=== PATIENT | female | born 1995 | race Caucasian/White ===

== ENCOUNTER → 2016-10-19 | Outpatient (CLI) | payer OTHER | END | disposition home or self-care (01) | LOC: LABWHC1 14:26 | PROVIDERS: ATTEND Obstetrics & Gynecology | DX: Z34.92 Encounter for supervision of normal pregnancy, unspecified, second trimester (principal); Z3A.00 Weeks of gestation of pregnancy not specified | CPT/HCPCS: 36415; 82105; 82677; 84702; 86336 ==

== ENCOUNTER → 2016-11-20 | Outpatient (CLI) | payer OTHER ==
--- NOTE | 2016-11-20 15:33 | US ---
EXAMINATION TYPE: US OB anatomy transabd DATE OF EXAM: 11/20/2016 2:53 PM COMPARISON: NONE HISTORY: 21-year-old female LGA, TECHNIQUE: Transabdominal (TA) FINDINGS: EXAM MEASUREMENTS: GESTATIONAL AGE / DATING Physician Established: (21 weeks/3 days) EDC: 03/30/2017 Dates by LMP: (21 weeks/3 days) EDC: 03/30/2017 Dates by First Scan: today Dates by Current Scan for: (20 weeks/5 days +/- 1W0D) EDC: 04/04/2017 SURVEY IUP: Single PLACENTA: Anterior PREVIA: No previa. The caudal placental margin is 3.2 cm from the internal cervical os. KAIDEN: 15.8 cm Normal CERVICAL LENGTH (transabdominal: norm > 3.0cm): 4.0 cm BIOMETRY PRESENTATION: Variable/ Cephalic at exam start LIE: Oblique BPD: 5.0 cm 21 weeks / 0 days HC: 18.5 cm 20 weeks / 6 days AC: 16.1 cm 21 weeks / 1 day FL: 3.5 cm 21 weeks / 0 days ESTIMATED WEIGHT IN GRAMS: 397.3 grams ESTIMATED WEIGHT IN LBS/OZS: 0 lbs. 14 oz. WEIGHT PERCENTAGE BASED ON ESTABLISHED DATE: 26.7 % HC/AC: 1.15 normal FL/AC: 21.6 normal HEART RATE: 155 bpm RHYTHM: Normal ANATOMY SEEN (within normal limits): Lateral Vent (< 1 cm) 0.5 cm Cisterna Magna (< 1.1 cm) 0.4 cm Nuchal Fold (< 0.6 cm) 0.3 cm Cerebellum (varies with age) 2.1 cm Choroid Plexus (bilateral) Midline Falx Cavus Septi Pellucidi Four Chamber Heart Stomach Situs Diaphragm Bladder Three Vessel Cord Longitudinal Spine Transverse Spine Legs (bilateral) ANATOMY SUBOPTIMALLY VISUALIZED: Nose / Lips Outflow tracts: LVOT/RVOT Kidneys (bilateral) Cord Insert Arms (bilateral) - not seen along their entire length TECHNOLOGIST IMPRESSION: Single, live, IUP,20 weeks/5 days, EDC: 04/04/2017, HR 155bpm IMPRESSION: 1. Single live intrauterine with estimated gestational age of 21 weeks 3 days by LMP. Curre nt ultrasound biometry is concordant but smaller at 20 weeks 5 days, placing the child at the 27th pe rcentile for weight. 2. A few of the structures on the survey were suboptimally visualized (nose/lips, outflow tract s, kidneys, cord insertion, and bilateral arms). If desired, the patient can be brought back for a re scan of missed anatomy in 1 to 2 weeks. The remaining visualized structures appear normal. 3. Anterior placenta, slightly low lying, located 3 cm from the internal cervical os.
== END | disposition home or self-care (01) ==
LOC: RADUSWWP 14:00
PROVIDERS: ATTEND Obstetrics & Gynecology
DX: O44.42 Low lying placenta NOS or without hemorrhage, second trimester (principal); Z3A.21 21 weeks gestation of pregnancy
CPT/HCPCS: 76811

== ENCOUNTER → 2016-12-05 | Outpatient (CLI) | payer OTHER ==
--- NOTE | 2016-12-05 15:51 | US ---
EXAMINATION TYPE: US OB follow up DATE OF EXAM: 12/05/2016 3:26 PM COMPARISON: Prior ultrasound November 20, 2016 CLINICAL HISTORY: Z36 FOLLOW UP PREV ABN US or re evaluation. Assess renals, CI, N/L, outflow tracts, and arms EXAM PERFORMED: OBTA GESTATIONAL AGE / DATING Physician Established: (23 weeks/7 days) EDC: 03/30/2017 No growth performed on today?s study per ordering physician SURVEY Items seen today: Cord Insert Kidneys Outflow tracts Nose/Lips Bilateral arms PRESENTATION: Vertex LIE: Longitudinal HEART RATE: 142 bpm RHYTHM: Normal On today's study previously visualized areas that were not sufficiently imaged appeared within normal limits during real-time scanning and images saved. IMPRESSION: As above
== END | disposition home or self-care (01) ==
LOC: RADUSWWP 14:01
PROVIDERS: ATTEND Obstetrics & Gynecology
DX: Z36 Encounter for antenatal screening of mother (principal); Z3A.23 23 weeks gestation of pregnancy
CPT/HCPCS: 76816

== ENCOUNTER → 2016-12-21 | Outpatient (CLI) | payer OTHER ==
[2016-12-21 12:23] LABS: CH 30.2; CHCM 34.3; HCT 37.8 % (34.0-46.0); HDW 2.97; HGB 12.9 gm/dL (11.4-16.0); MCH 30.3 pg (25.0-35.0); MCHC 34.1 g/dL (31.0-37.0); MCV 88.7 fL (80.0-100.0); Mean Platelet Volume 7.6; RBC 4.26 m/uL (3.80-5.40); RDW 13.7 % (11.5-15.5); WBC 9.9 k/uL (3.8-10.6)
== END | disposition home or self-care (01) ==
LOC: LABWHC1 11:02
PROVIDERS: ATTEND Obstetrics & Gynecology
DX: Z34.92 Encounter for supervision of normal pregnancy, unspecified, second trimester (principal); Z3A.00 Weeks of gestation of pregnancy not specified
CPT/HCPCS: 36415; 82950; 85027

== ENCOUNTER 2017-03-29 06:15 | Inpatient (IN) | payer OTHER ==
--- NOTE | 2017-03-28 21:47 | P.HPOB ---
History of Present Illness H&P Date: 03/28/17 Chief Complaint: Scheduled repeat section This is a 21-year-old female 2 para 1 with an estimated date of confinement of 03/30/2017, estimated gestational age of 39-4/7 weeks, who presents to labor and delivery for repeat section. She has been feeling irregular contractions. She admits to good movement. course has been essentially uncomplicated. labs: Chlamydia-positive, test of cure-negative Gonorrhea-negative HIV-nonreactive Random glucose-91 Hepatitis B surface antigen-negative Hemoglobin-14.3 Syphilis antibody-negative nonreactive Rubella-immune Blood type-O+ Antibody screen-negative Quad screen-negative Obstetrical ultrasound-normal anatomy One hour Glucola-110 Group B streptococcus-positive Obstetrical history: . History of 1 section at term due to failure to progress. She did have gestational diabetes diet controlled during that . And delivered a 6 lbs. 3 oz. infant. Gynecologic history: History of chlamydia treated during this and her first . Social history: She is single and currently unemployed. Review of Systems Constitutional: Denies chills, Denies fever Eyes: denies blurred vision, denies pain Ears, nose, mouth and throat: Denies headache, Denies sore throat Cardiovascular: Denies chest pain, Denies shortness of breath Respiratory: Denies cough Gastrointestinal: Reports abdominal pain (Irregular contractions) Musculoskeletal: Denies myalgias Integumentary: Denies pruritus, Denies rash Neurological: Denies numbness, Denies weakness Past Medical History Past Medical History: No Reported History Past Surgical History: Appendectomy, Section Past Psychological History: Depression Smoking Status: Never smoker Past Alcohol Use History: None Reported Past Drug Use History: None Reported - Past Family History Father Family Medical History: Hypertension Medications and Allergies Home Medications Medication Instructions Recorded Confirmed Type Pnv,Calcium 72/Iron/Folic Acid 1 tab PO DAILY 03/28/17 03/28/17 History [ Plus Tablet] Allergies Allergy/AdvReac Type Severity Reaction Status Date / Time No Known Allergies Allergy Verified 03/28/17 21:45 Exam Osteopathic Statement: *. No significant issues noted on an osteopathic structural exam other than those noted in the History and Physical/Consult. HEENT: Within normal limits Heart: Regular rate and rhythm Lungs: Clear to auscultation bilaterally Abdomen: Cervix: 1 cm/60%/-2 station heart tones: 140s by Doppler Extremities: Negative Homans Assessment and Plan (1) 39 weeks gestation of Status: Acute (2) Previous delivery affecting Status: Acute Plan: Proceed with repeat low transverse section. I have discussed the risks, benefits, and alternative therapies for the above- mentioned procedure and for both sedation/anesthesia as well as necessary blood products administration, if indicated, as they pertain to this patient. The patient has indicated her understanding and acceptance of the risks and procedures discussed.
[2017-03-29] MEDS ORDERED: LACTATED RINGERS 1,000 ML IV ONE (06:25)
[2017-03-29] MEDS ORDERED: CITRIC ACID-SODIUM CITRATE 15 ML CUP PO ONE (06:25)
[2017-03-29] MEDS ORDERED: LIDOCAINE 1% 20 ML VIAL (10MG/ML) FOR IV START INTRADERMA PRN (06:25)
[2017-03-29] MEDS ORDERED: ceFAZolin 2 GM in SODIUM CHLORIDE 0.9% 100 ML IVPB ONE (06:25)
[2017-03-29 06:46] VITALS: BMI 32.5
[2017-03-29 06:57] LABS: Basophils % (A) 0 %; CH 29.6; CHCM 35.5; Eosinophils # (A) 0.1 k/uL (0-0.7); Eosinophils % (A) 1 %; HCT 35.1 % (34.0-46.0); HDW 3.09; HGB 12.3 gm/dL (11.4-16.0); Luc # (Auto) 0.23; Luc % (Auto) 3; Lymphocytes # (A) 2.3 k/uL (1.0-4.8); Lymphocytes % (A) 25 %; MCH 29.3 pg (25.0-35.0); MCHC 34.9 g/dL (31.0-37.0); MCV 83.9 fL (80.0-100.0); Mean Platelet Volume 7.7; Monocytes # (A) 0.4 k/uL (0-1.0); Monocytes % (A) 4 %; Neutrophils # (A) 6.2 k/uL (1.3-7.7); Neutrophils % (A) 67 %; RBC 4.18 m/uL (3.80-5.40); RDW 13.2 % (11.5-15.5); WBC 9.2 k/uL (3.8-10.6); WBC (Perox) 9.05
[2017-03-29] MEDS: LACTATED RINGERS 1,000 ML IV SCH ×2 (07:20→12:32)
[2017-03-29] MEDS ORDERED: NALBUPHINE 10 MG/ML AMPUL ONE (08:00)
[2017-03-29] MEDS ORDERED: MORPHINE SULFATE (PF) 0.3 MG/0.3 ML SYR ONE (08:00)
[2017-03-29] MEDS ORDERED: fentaNYL (PF) 50 MCG/ML 2 ML AMP ONE (08:00)
[2017-03-29] MEDS ORDERED: ePHEDrine 50 MG/ML 1 ML AMP ONE (08:00)
[2017-03-29] MEDS ORDERED: KETOROLAC 30 MG/ML 1 ML VIAL ONE (08:00)
[2017-03-29] MEDS ORDERED: ONDANSETRON 4 MG/2 ML VIAL ONE (08:00)
[2017-03-29] MEDS ORDERED: OXYTOCIN 10 UNIT/ML 1 ML VIAL ONE (08:00)
--- NOTE | 2017-03-29 08:44 | P.OP ---
Date of Procedure: 03/29/17 Preoperative Diagnosis: 1. Intrauterine at 39-6/7 weeks. 2. Previous section. Postoperative Diagnosis: Same Procedure(s) Performed: Repeat low transverse section Implants: Anesthesia: spinal (Duramorph) Surgeon: Yoko Bocanegra Or Assistant #1: Ian Eugene Estimated Blood Loss (ml): 400 Pathology: other (Placenta) Condition: stable Disposition: floor Indications for Procedure: This is a 21-year-old female 2 para 1 with an estimated date of confinement of 03/30/2017, estimated gestational age of 39-6/7 weeks, who presents to labor and delivery for scheduled repeat section. I have discussed the risks, benefits, and alternative therapies for the above- mentioned procedure and for both sedation/anesthesia as well as necessary blood products administration, if indicated, as they pertain to this patient. The patient has indicated her understanding and acceptance of the risks and procedures discussed. Operative Findings: A viable male is noted in the vertex presentation with nuchal cord 1 and scores of 9 at 1 minute and 9 at 5 minutes and weight of 7 lbs. 0 oz. Normal uterus tubes and ovaries are noted. She was noted to have a large keloid scar. Description of Procedure: The patient is taken to the operating room where she is placed in the dorsal supine position with leftward tilt after spinal Duramorph anesthesia is given. She is prepped and draped in the normal sterile fashion. Skin was tested and found to be adequately anesthetized. A Pfannenstiel skin incision was made with a scalpel removing the previous laparotomy scar. A second knife was used to carry the incision down to the underlying layer of fascia. The fascia was nicked in the midline with a scalpel and then extended laterally bilaterally with Carter scissors. The anterior lip of the fascia was grasped with 2 Jessica clamps and then dissected off the underlying rectus muscle in the midline with Carter scissors. The inferior aspect of the fascial incision was grasped with 2 Jessica clamps and dissected off the underlying rectus muscle and the midline with Carter scissors. Next the peritoneum layer was tented up with 2 hemostats and then entered sharply with the scalpel. The incision is extended superiorly and inferiorly with Metzenbaum scissors. Next a DeLee retractor is placed. The vesicouterine peritoneum is entered sharply with Metzenbaum scissors and extended laterally bilaterally with Metzenbaum scissors and then the bladder flap is pushed inferiorly. The lower uterine segment is incised in transverse fashion with the scalpel and then bluntly entered with a hemostat. Clear fluid is noted. The incision was then extended laterally bilaterally with 2 fingers. Next the 's head is delivered through the incision. Nose and mouth are bulb suctioned. The remainder of the is easily delivered and placed on mother's abdomen. Cord is clamped and cut. Infant is taken to warmer by nursing staff. Uterine fundus is gently massaged and placenta is delivered manually. Uterus is exteriorized and cleared of all clots and debris. Uterine incision is closed with 0 Vicryl suture in a running locked fashion. A second layer of 0 Vicryl suture is used in a running fashion for hemostasis. Lower uterine segment was noted to be very thin. Once adequate hemostasis as assured , the vesicouterine peritoneum is reapproximated with 2-0 Vicryl suture in a running fashion. Posterior cul-de-sac is suctioned of all clots and debris. Uterus is returned to the abdomen. Incision is noted to be hemostatic. Peritoneal layer is closed with 0 Vicryl suture in a running fashion. Muscle layer is reapproximated with 0 Vicryl suture in interrupted fashion. Fascia layer is then closed with 0 PDS suture with 2 sutures meeting in the midline and the knots buried in either side and in the midline. The subcutaneous tissue was then closed with 2-0 Vicryl suture. Skin layer was then closed with padma. All sponge and needle counts are correct. The patient is taken to recovery room in stable condition.
[2017-03-29] MEDS ORDERED: NALOXONE 0.4 MG/ML 1 ML VIAL IV PRN ×2 (08:57→09:07)
[2017-03-29] MEDS ORDERED: LANOLIN CREAM 5 GM TUBE TOPICAL PRN (08:57)
[2017-03-29] MEDS ORDERED: OXYTOCIN 20 UNITS/1000 ML NS 1,000 ML IV SCH (08:57)
[2017-03-29] MEDS ORDERED: Acetaminophen-Codeine 300-30mg TAB PO PRN (08:57)
[2017-03-29] MEDS ORDERED: METOCLOPRAMIDE 5 MG/ML 2 ML VIAL IVP PRN (08:57)
[2017-03-29] MEDS ORDERED: diphenhydrAMINE 50 MG/ML 1 ML VIAL IVP PRN ×3 (08:57→09:07)
[2017-03-29] MEDS ORDERED: ZOLPIDEM 5 MG TAB PO PRN (08:57)
[2017-03-29] MEDS ORDERED: ONDANSETRON 4 MG/2 ML VIAL IVP PRN ×2 (08:57→09:07)
[2017-03-29] MEDS ORDERED: ACETAMINOPHEN TAB 325 MG TAB PO PRN (08:57)
[2017-03-29] MEDS ORDERED: diphenhydrAMINE 50 MG CAP PO PRN (08:57)
[2017-03-29] MEDS ORDERED: diphenhydrAMINE 25 MG CAP PO PRN (08:57)
[2017-03-29] MEDS ORDERED: MORPHINE SULFATE 4 MG/ML SYRINGE IVP PRN (09:07)
[2017-03-29] MEDS: PRENATAL VIT-IRON-FOLIC ACID 1 EACH CAP PO SCH (10:47)
[2017-03-29] MEDS: KETOROLAC 30 MG/ML 1 ML VIAL IVP PRN ×2 (14:24→21:01)
[2017-03-29] MEDS: SENNOSIDES-DOCUSATE SODIUM 1 EACH TAB PO SCH (20:54)
[2017-03-30] MEDS: LACTATED RINGERS 1,000 ML IV SCH ×4 (02:36→23:49)
[2017-03-30] MEDS: KETOROLAC 30 MG/ML 1 ML VIAL IVP PRN ×2 (02:48→10:22)
[2017-03-30 07:18] LABS: Basophils % (A) 0 %; CH 28.7; Eosinophils # (A) 0.1 k/uL (0-0.7); Eosinophils % (A) 1 %; HCT 28.3 % (34.0-46.0); HDW 3.09; Luc # (Auto) 0.24; Luc % (Auto) 3; Lymphocytes # (A) 1.6 k/uL (1.0-4.8); Lymphocytes % (A) 22 %; MCH 29.6 pg (25.0-35.0); MCHC 34.9 g/dL (31.0-37.0); MCV 84.9 fL (80.0-100.0); Mean Platelet Volume 7.9; Monocytes # (A) 0.3 k/uL (0-1.0); Monocytes % (A) 4 %; Neutrophils % (A) 69 %; RBC 3.33 m/uL (3.80-5.40); RDW 13.2 % (11.5-15.5); WBC 7.2 k/uL (3.8-10.6); WBC (Perox) 7.85
[2017-03-30 07:22] LABS: HGB 9.9 gm/dL (11.4-16.0)
--- NOTE | 2017-03-30 07:38 | P.PNOBGPC ---
Subjective - Subjective Principal diagnosis: Status post repeat section postoperative day #1 Interval history: Patient is doing okay. She has been ambulating and passing flatus. She has not been able to urinate since her catheter has been removed and has been straight cathed 1 time. She is doing well with feeding. Lochia is decreasing. Pain is fairly well controlled. Patient reports: Reports appetite normal, Reports pain well controlled, Reports ambulating normally, Denies voiding normally : doing well, nursing well Objective - Vital Signs Latest vital signs: Vital Signs Temp Pulse Resp BP Pulse Ox 03/30/17 06:00 98 03/30/17 04:00 97.7 F 70 18 110/70 03/30/17 02:00 99 03/30/17 00:00 98.1 F 78 18 108/57 97 03/29/17 22:00 97 03/29/17 20:00 97.7 F 76 18 115/75 97 03/29/17 18:00 98 03/29/17 16:00 97.8 F 73 20 114/72 98 03/29/17 15:16 97 03/29/17 14:29 98.1 F 72 16 123/83 97 03/29/17 14:07 98 03/29/17 14:00 98 03/29/17 12:07 97 03/29/17 10:47 96.4 F L 62 16 150/86 100 03/29/17 09:02 56 L 16 152/71 99 03/29/17 08:57 99 03/29/17 08:47 97.1 F L 56 L 16 152/66 99 Intake and Output 03/29/17 03/30/17 03/30/17 22:59 06:59 14:59 Output Total 600 1000 Balance -600 -1000 Output: Urine 600 1000 Uretheral (Lal) 300 500 - Exam Extremities: Present: normal. Absent: tenderness, edema Abdomen: Present: normal appearance, soft (Positive bowel sounds 4). Absent: distention, tenderness Incision: Present: normal, dry, intact. Absent: erythematous Uterus: Present: normal, firm. Absent: tenderness - Labs Labs: Abnormal Lab Results - Last 24 Hours (Table) 03/30/17 Range/Units 06:45 RBC 3.33 L (3.80-5.40) m/uL Hgb 9.9 L D (11.4-16.0) gm/dL Hct 28.3 L (34.0-46.0) % Assessment and Plan (1) 39 weeks gestation of Current Visit: Yes Status: Acute Code(s): Z3A.39 - 39 WEEKS GESTATION OF SNOMED Code(s): 77175720 (2) Previous delivery affecting Narrative/Plan: Impression is status post repeat section postoperative day #1. Plan is to continue with postoperative care. Will attempt to urinate again this morning and if unable will straight cath again. Will advance diet as tolerated. Current Visit: Yes Status: Acute Code(s): O34.219 - MATERNAL CARE FOR UNSP TYPE SCAR FROM PREVIOUS DEL SNOMED Code(s): 164291517
--- NOTE | 2017-03-30 08:35 | P.PN ---
Progress Note - Text Date:03/30 Time:709 Patient is status post . Patient seen this morning with VAS score of 0.no c/o of pruritus, no c/o nausea/vomiting, comfortable and doing well.
[2017-03-30] MEDS: SENNOSIDES-DOCUSATE SODIUM 1 EACH TAB PO SCH ×2 (10:22→22:07)
[2017-03-30] MEDS: PRENATAL VIT-IRON-FOLIC ACID 1 EACH CAP PO SCH (12:04)
[2017-03-30] MEDS: Acetaminophen-Codeine 300-30mg TAB PO PRN ×2 (14:07→22:05)
[2017-03-30] MEDS: IBUPROFEN 600 MG TAB PO PRN (18:06)
[2017-03-30 23:43] VITALS: PULSE 84
[2017-03-31] MEDS: Acetaminophen-Codeine 300-30mg TAB PO PRN (03:13)
--- NOTE | 2017-03-31 07:50 | P.DS ---
Providers Date of admission: 03/29/17 06:15 Expected date of discharge: 03/31/17 Attending physician: Yoko Bocanegra Primary care [facility] Course: Stacia is doing very well postop day 2. She is involuting, voiding, and she is tolerating her diet. She voices no complaint. Vital signs are stable and afebrile. Heart regular, lungs clear, extremities without pain, abdomen is soft positive bowel sounds are noted uterus is firm.. She is requesting discharge home today. Prescription for pain medication and provided. She is aware to have no heavy lifting, limit stairs and driving and pelvic rest. If she should have any high temperatures, heavy bleeding, or severe pain she'll notify our office. All the questions are answered for her prior to discharge. It is noted that her incisions clean dry and intact will plan to remove padma today. Assessment postop day 2. Plan discharged home follow up with Dr. Fatima in 1 week Patient Condition at Discharge: Good Plan - Discharge Summary New Discharge Prescriptions: New Acetaminophen Tab [Tylenol] 650 mg PO Q4HR PRN tab PRN Reason: Mild Pain Or Fever >= 100.5 Acetaminophen-Codeine 300-30mg [Tylenol w/codeine #3] 1 each PO Q4HR PRN #30 tab PRN Reason: Mild Pain Ibuprofen [Motrin] 600 mg PO Q6HR PRN #60 tab PRN Reason: Mild Pain Or Fever >= 100.5 Continue Pnv,Calcium 72/Iron/Folic Acid [ Plus Tablet] 1 tab PO DAILY Discharge Medication List Pnv,Calcium 72/Iron/Folic Acid [ Plus Tablet] 1 tab PO DAILY 03/28/17 [ History] Acetaminophen Tab [Tylenol] 650 mg PO Q4HR PRN tab 03/29/17 [Rx] Acetaminophen-Codeine 300-30mg [Tylenol w/codeine #3] 1 each PO Q4HR PRN #30 tab 03/29/17 [Rx] Ibuprofen [Motrin] 600 mg PO Q6HR PRN #60 tab 03/29/17 [Rx] Follow up Appointment(s)/Referral(s): Yoko Bocanegra DO [Doctor of Osteopathic Medicine] - 1 Week Activity/Diet/Wound Care/Special Instructions: Instructions 1. Do not begin any exercise program for 3 weeks. 2. Do not resume sexual relations for 3 weeks or longer if uncomfortable. 3. You may take tub baths or showers at any time. 4. You may use tampons if desired after 3 weeks. 5. Keep the area of episiotomy (stitches) clean and dry. 6. If you are not nursing, wear a good fitting, supportive bra during the day and limit fluid intake for at least 1 week to prevent breast engorgement. 7. Call the office, [phone], within the next week to make appointment for your 6 week checkup if it has not already been made. 8. Report any of the following occurrences to the doctor promptly: a. Heavy, excessive bleeding b. Chills, fever c. Burning or frequency of urination d. Pain or redness and breasts if nursing e. Increasing pain or swelling in episiotomy (stitches). In addition to the above instructions, the following additional should be followed: 1. No heavy lifting or straining (exercising) until after 6 week checkup. 2. Keep abdominal incision clean and dry: You may wear a dressing if more comfortable. 3. Make office appointment for 10 days after going home or as instructed by her doctor. Discharge Disposition: HOME SELF-CARE
[2017-03-31] MEDS: SENNOSIDES-DOCUSATE SODIUM 1 EACH TAB PO SCH (10:27)
[2017-03-31] MEDS: PRENATAL VIT-IRON-FOLIC ACID 1 EACH CAP PO SCH (10:27)
[2017-03-31 11:29] VITALS: BP 132/88; RESP 18; TEMP 97.8
[2017-03-31] MEDS: IBUPROFEN 600 MG TAB PO PRN (13:00)
== END 2017-03-31 13:15 | disposition home or self-care (01) | DRG 766 ==
LOC: 4FBP 06:15
PROVIDERS: ADMIT Obstetrics & Gynecology; ATTEND Obstetrics & Gynecology
PROC: 10D00Z1 Extraction of Products of Conception, Low, Open Approach (ICD-10-PCS; principal; 2017-03-29 08:00)
DX: O34.211 Maternal care for low transverse scar from previous cesarean delivery (principal); F32.9 Major depressive disorder, single episode, unspecified; Z37.0 Single live birth; O99.344 Other mental disorders complicating childbirth; O69.81X0 Labor and delivery complicated by cord around neck, without compression, not applicable or unspecified; O99.72 Diseases of the skin and subcutaneous tissue complicating childbirth; L91.0 Hypertrophic scar; Z3A.39 39 weeks gestation of pregnancy; Z82.49 Family history of ischemic heart disease and other diseases of the circulatory system
CPT/HCPCS: 85025; 86850; 86900; 86901; 88307